=== PATIENT | male | born 1930 ===

== ENCOUNTER → 2016-09-19 | Outpatient (CLI) | payer MEDICARE, BC ==
[~2016-09-19] VITALS: Ht 157.5 cm; Wt 63.4 kg
[~2016-09-19] MED LIST: APIX2.5T PO; ASPI-556 PO; DILT180C3 PO; FOLI1 PO; LOSA50TA37 PO; LOVA20 PO; METH2.5 PO; METO-325 PO; MULT-1203 PO; OXYB5XL PO; QUET25TA PO; TAMS0.4C32 PO; TRAZ-144 PO
[2016-09-19 10:42] VITALS: BP 106/54
== END | disposition home or self-care (01) ==
LOC: SRCNTR 10:26
PROVIDERS: ATTEND Internal Medicine Clinical Cardiac Electrophysiology
DX: Z45.018 Encounter for adjustment and management of other part of cardiac pacemaker (principal); I10 Essential (primary) hypertension; E78.5 Hyperlipidemia, unspecified; I48.0 Paroxysmal atrial fibrillation
CPT/HCPCS: G0463